=== PATIENT | male | born 1970 | race Caucasian/White ===

== ENCOUNTER → 2020-01-16 | Outpatient (CLI) | payer OTHER ==
--- NOTE | 2020-01-16 16:02 | KCIC ---
EXAM: KNEE RIGHT 4V 01/16/2020 12:00 AM CLINICAL INDICATION:Right knee pain, chronic pain and stiffness, worse with activity COMPARISON:None TECHNIQUE:3 views of the right knee FINDINGS:No acute fracture. Alignment is normal. There is mild lateral compartment narrowing. Small tricompartment osteophytes. No joint effusion or soft tissue abnormality. IMPRESSION:Mild tricompartmental degenerative joint disease, greatest in the lateral compartment. Electronically signed by: Linda Walters MD (01/16/2020 3:59 PM) [id number]
== END ==
LOC: KCIC 09:12
PROVIDERS: ATTEND Nurse Practitioner Family
DX: M17.11 Unilateral primary osteoarthritis, right knee (principal); M25.761 Osteophyte, right knee
CPT/HCPCS: 73564